=== PATIENT | female | born 1945 | race Caucasian/White ===

== ENCOUNTER 2021-08-05 18:04 | Emergency (ER) | payer OTHER, MEDICARE, BC ==
[~2021-08-05] VITALS: Ht 160 cm; Wt 90.7 kg
[~2021-08-05 18:04] MED LIST: LISINOPRIL-HCT1 EAC2 PO; LOVASTATIN 20 M20 MG PO; METFORMIN HCL500 MG PO; SILVADENE20 GM TP; TRAMADOL 50 MG50 MG PO
[2021-08-05] MEDS ORDERED: IBUPROFEN 600600 M1 PO (21:16)
[2021-08-05] MEDS ORDERED: FLEXERIL PO (21:16)
[2021-08-05] MEDS ORDERED: CEPHALEXIN500 MG PO (21:16)
[2021-08-05 21:39] VITALS: BP 140/68
== END 2021-08-05 21:39 | disposition home or self-care (01) ==
LOC: M.ERS 18:04
DX: S01.81XA Laceration without foreign body of other part of head, initial encounter (principal); S80.01XA Contusion of right knee, initial encounter; M54.9 Dorsalgia, unspecified; M54.2 Cervicalgia; R07.81 Pleurodynia; M25.561 Pain in right knee; I10 Essential (primary) hypertension; E78.5 Hyperlipidemia, unspecified; Z98.890 Other specified postprocedural states; Z79.899 Other long term (current) drug therapy; Z90.89 Acquired absence of other organs; W18.09XA Striking against other object with subsequent fall, initial encounter; Y93.89 Activity, other specified; Y92.89 Other specified places as the place of occurrence of the external cause; Y99.8 Other external cause status